=== PATIENT | female | born 1990 | race Caucasian/White ===

== ENCOUNTER 2019-12-21 00:24 | Inpatient (IN) | payer BC, SELFPAY ==
[2019-12-21] MEDS ORDERED: Ringers Lactate 1,000 ML IV SCH (04:05)
[2019-12-21] MEDS ORDERED: Ringers Lactate 1,000 ML IV PRN (04:05)
[2019-12-21] MEDS ORDERED: OXYTOCIN/LR 20 UNIT/1,000 ML BAG IV SCH ×2 (04:05→19:00)
[2019-12-21] MEDS ORDERED: PROMETHAZINE INJ 25 MG/ML AMP IM PRN (04:38)
[2019-12-21] MEDS ORDERED: METHYLERGONOVINE 0.2MG/ML AMP IM PRN (04:38)
[2019-12-21] MEDS ORDERED: BUTORPHANOL 1 MG/ML INJ IV PRN (04:38)
[2019-12-21] MEDS ORDERED: CARBOPROST TROME 250 MCG/ML IM PRN (04:38)
[2019-12-21 05:15] VITALS: BMI 34.8
[2019-12-21 05:28] LABS: Urine Appearance CLEAR; Urine Bilirubin NEGATIVE (NEG); Urine Blood 3+ (NEG); Urine Color YELLOW; Urine Glucose NEGATIVE (NEG); Urine Protein NEGATIVE (NEG); Urine Urobilinogen 0.2 mg/dL (0.2-1.0); Urine pH 6.5 (5.0-7.0)
[2019-12-21 05:29] LABS: Urine Microscopic Reflex ORDER UMIC
[2019-12-21 05:48] LABS: Urine Bacteria <20 /HPF (<20); Urine Culture Reflex Order REFLEXED
[2019-12-21 06:07] LABS: Absolute Lymphocytes (CBC) 1.5 K/uL (0.7-4.9); Hematocrit 37.8 % (36.0-45.0); Lymphocytes % 13.2 % (15.3-44.8); MPV 10.4 fL (7.6-11.3); RBC Red Blood Cell Count 4.06 M/uL (3.86-4.86)
[2019-12-21] MEDS ORDERED: LIDOCAINE 1% MPF 30 ML VIAL ONE (08:10)
--- NOTE | 2019-12-21 09:48 | PREOPHP ---
Date of Admission: 12/21/2019 Luanne is a 29-year-old female, primigravida, 40 weeks 5 days. The patient is Rh positive, immune to Rubella. Negative beta strep screen. Has been COVID positive, but without symptoms and it has been more than 10 days now since she was found to be COVID positive. FHTs normal reactive. Vital signs all stable. She is 2 cm, still somewhat posterior 50% to 60% effaced, rupture membranes, clear fluid . Anticipate more rapid progress. Once we get good firm, contractions. She is really not uncomfort able at this point. Full labor talk given. Anticipate delivery sometime later today. DAGOBERTO/VARGAS Voice ID: [id number]
--- NOTE | 2019-12-21 15:06 | PN ---
The patient has progressed to 3.5 to possibly 4. Baby station has not changed. The patient is not h aving any back labor at this point. Baby looks excellent. She is maria elena every 2-3 minutes. Addi wiley is on 18 milliunits of Pitocin at this point and still uses Lamaze breathing techniques. Hopefully , we will see more rapid progress once the baby descends further into the pelvis, but right now at [facility] we are making some change compared to this morning. DAGOBERTO/VARGAS Voice ID: [id number] Report ID: [id number]
[2019-12-21] MEDS ORDERED: IBUPROFEN 200 MG TAB PO PRN (18:13)
[2019-12-21] MEDS ORDERED: DIPHENHYDRAMINE 25 MG TAB/CAP PO PRN (18:13)
[2019-12-21] MEDS ORDERED: ACETAMINOPHEN 500 MG TAB PO PRN (18:13)
[2019-12-21] MEDS ORDERED: Oxycodone HCl/Acetaminophen 1 TAB TAB PO PRN ×2 (18:13)
[2019-12-21] MEDS ORDERED: DOCUSATE NA/SENNA CONC 1 TAB PO PRN (18:13)
[2019-12-21] MEDS ORDERED: BISACODYL 10 MG RECTAL SUPP PR PRN (18:13)
--- NOTE | 2019-12-21 20:00 | PN ---
The patient is on 20 milliunits of Pitocin, maria elena every 2 minutes. Baby looks excellent. She has had no medication. She is doing Lamaze breathing techniques. She is now 8 cm. There is a sligh t bit of edema at 11 o'clock. She brought the baby down to 0 station. She is in excellent control. Hopefully, we will see more rapid dilation and delivery reasonably soon. Full discussion with the hans cooper and her . DAGOBERTO/VARGAS Voice ID: [id number] Report ID: [id number]
[2019-12-22 03:35] LABS: RPR (Rapid Plasma Reagin) NON-REACT (NON-REACT)
--- NOTE | 2019-12-22 03:37 | OP ---
Surgeon: Rc Bautista MD A 29-year-old primigravida, 40 weeks 5 days, came in for labor induction, this morning was 2.5 cm, ru pture of membranes, clear fluid. The patient used Lamaze breathing techniques throughout the day and throughout her labor. Second stage of approximately an hour and 20 minutes. Spontaneous vaginal de livery of an 8 pounds 5 ounces male infant, Apgars 9 and 9. Small second-degree laceration at midlin e and a first-degree laceration involving the right labia minora, both sutured with 2-0 chromic runni ng locked stitch after local infiltration. Schultze delivery of the placenta. Uterus contracted guera n well with IV drip Pitocin. Estimated blood loss thus far 350 cc. The patient is Rh positive, immu ne to rubella, negative beta strep screen, positive COVID status sometime ago but has never shown any symptoms whatsoever. Final Diagnosis: Term intrauterine , 40 weeks 5 days, labor induction, vaginal delivery. DAGOBERTO/VARGAS Voice ID: [id number] Report ID: [id number]
[2019-12-22] MEDS ORDERED: IBUPROFEN 600 MG TAB ONE (12:17)
[2019-12-22 16:16] VITALS: TEMP 97.9
[2019-12-22 20:42] VITALS: BP 117/61
--- NOTE | 2019-12-23 04:53 | DS ---
Date of Discharge: 12/22/2019 Hospital Course: Adam Jara is a 29-year-old primigravida, 40 weeks 5 days. Delivered an 8 pounds 5 ounces male infant, Apgars 9 and 9. First-degree and second-degree lacerations repaired with 2-0 chromic under local infiltration. Schultze delivery of the placenta inspected and noted to be intact and normal. Less than 350 mL blood loss. Rh positive, immune to Rubella. Negative beta strep scre en. The patient had positive COVID test on December 09, has had no further testing, but has never had any symptoms whatsoever. Today she is ambulating and voiding. No problems. She is taking no analge sics during labor or afterwards and requires none on dismissal. She does not wish to get the Tdap sh ot. The baby will be dismissed later this evening and the patient wished to go home. She will retur n to my office in 6 weeks for followup to report any temperature elevation of 100 degrees or greater, severe pain, heavy bleeding, or any other type of abnormalities. Final Diagnoses: Intrauterine gestation, 40 weeks 5 days, labor induction, vaginal delivery. Positi ve COVID status, but no symptoms. DAGOBERTO/VARGAS Voice ID: [id number] Report ID: [id number]
== END 2019-12-22 22:00 | disposition home or self-care (01) | DRG 805 ==
LOC: L&D 02:01 → EDSTATUS 02:08 → 2ND-WC 04:06
PROVIDERS: ADMIT Specialist; ATTEND Specialist
PROC: 10E0XZZ Delivery of Products of Conception, External Approach (ICD-10-PCS; principal; 2019-12-21)
PROC: 0KQM0ZZ Repair Perineum Muscle, Open Approach (ICD-10-PCS; 2019-12-21)
PROC: 10907ZC Drainage of Amniotic Fluid, Therapeutic from Products of Conception, Via Natural or Artificial Opening (ICD-10-PCS; 2019-12-21)
PROC: 3E033VJ Introduction of Other Hormone into Peripheral Vein, Percutaneous Approach (ICD-10-PCS; 2019-12-21)
DX: O70.1 Second degree perineal laceration during delivery (principal); U07.1 COVID-19; Z37.0 Single live birth; Z3A.40 40 weeks gestation of pregnancy
CPT/HCPCS: 36415; 81003; 81015; 85025; 86592; 86901; 87086; 87088; 87340; J2210; J2590; J7120